=== PATIENT | male | born 1975 | race African-American/Black ===

== ENCOUNTER 2019-01-14 15:21 | Emergency (ER) | payer OTHER ==
[~2019-01-14] VITALS: Ht 182.9 cm; Wt 137.0 kg
[2019-01-14 15:25] VITALS: Ht 182.9 cm; Wt 137.0 kg
[2019-01-14 16:39] VITALS: BP 147/93
== END 2019-01-14 16:39 | disposition home or self-care (01) ==
LOC: ED 15:21
DX: S49.91XA Unspecified injury of right shoulder and upper arm, initial encounter (principal); I10 Essential (primary) hypertension; V19.88XA Pedal cyclist (driver) (passenger) injured in other specified transport accidents, initial encounter; Y93.I9 Activity, other involving external motion; Y92.488 Other paved roadways as the place of occurrence of the external cause; Y99.8 Other external cause status